=== PATIENT | female | born 1940 | race Caucasian/White ===

== ENCOUNTER 2020-05-02 22:40 | Inpatient (IN) | payer MEDICARE, OTHER ==
[~2020-05-02] VITALS: Ht 170.2 cm; Wt 113.4 kg
[2020-05-03] VITALS (19 sets, daily range): BP systolic 104–149; BP diastolic 68–88
--- NOTE | 2020-05-03 00:58 | Emergency Department Note ---
History of Present Illnes History of Present Illness Chief Complaint: Respiratory History of Present Illness This is a 80 year old female PRESENTS TO THE ER C/O GENERALIZED WEAKNESS, SOB AND "FLUTTERING IN CHEST" FOR THE PAST WEEK; PT'S DAUGHTER STATES SHE STARTED A NEW MEDICATION A FEW WEEKS AGO; PT STATES SOB WORSENED TODAY; PT BRADYCARDIC, HR 35 IN TRIAGE; PT STATES COUGH FOR SEVERAL MONTHS THAT HAS NOT CHANGED AND DENIES CHEST PAIN, FEVER . Historian: Patient Arrival Mode: Car Onset (how long ago): week(s) (1) Location: GENERALIZED Quality: WEAKNESS, SO Radiation: Reports non-radiation Severity: moderate Onset quality: gradual Duration (how long): week(s) (1) Timing of current episode: constant Progression: worsening Context: Denies recent illness, Denies recent surgery Relieving factors: none Exacerbating factors: movement (EXERTION) Associated symptoms: Reports denies other symptoms Past Medical/Family History Physician Review I have reviewed the patient's past medical and family history. Any updates have been documented here. Past Medical History Recent Fever: No Clinical Suspicion of Infectio: No New/Unexplained Change in Ment: No Past Medical History: Hypertension, Hyperlipedemia Other Medical History: "SOME DEMENTIA" Past Surgical History: None Social History Smoking Cessation: Never Smoker Alcohol Use: None Any Illegal Drug Use: No Family History Family history of heart diseas: No Other family history HTN Review of Systems Review of Systems Constitutional: Reports no symptoms EENTM: Reports no symptoms Cardiovascular: Reports no symptoms Respiratory: Reports as per HPI Gastrointestinal: Reports no symptoms Genitourinary: Reports no symptoms Musculoskeletal: Reports no symptoms Integumentary: Reports no symptoms Neurological: Reports no symptoms Psychological: Reports no symptoms Endocrine: Reports no symptoms Hematological/Lymphatic: Reports no symptoms Physical Exam Related Data Allergies: Coded Allergies: Sulfa (Sulfonamide Antibiotics) (Verified Allergy, Intermediate, 05/03/20) iodine (Verified Allergy, Intermediate, 05/03/20) Triage Vital Signs Vital Signs Date Time Temp Pulse Resp B/P (MAP) Pulse Ox O2 Delivery O2 Flow Rate FiO2 05/02/20 23:58 35 20 145/90 97 Room Air Vital signs reviewed: Yes Physical Exam CONSTITUTIONAL Constitutional: Present well-developed, Present well-nourished HENT HENT: Present normocephalic, Present atraumatic, Present oropharynx clear/moist, Present nose normal HENT L/R: Present left ext ear normal, Present right ext ear normal EYES Eyes: Reports PERRL, Reports conjunctivae normal NECK Neck: Present ROM normal PULMONARY Pulmonary: Present effort normal, Present breath sounds normal CARDIOVASCULAR Cardiovascular: Present regular rhythm, Present heart sounds normal, Present c apillary refill normal, Present bradycardia (RATE 35) GASTROINTESTINAL Abdominal: Present soft, Present nontender, Present bowel sounds normal GENITOURINARY Genitourinary: Present exam deferred SKIN Skin: Present warm, Present dry MUSCULOSKELETAL Musculoskeletal: Present ROM normal NEUROLOGICAL Neurological: Present alert, Present oriented x 3, Present no gross motor or sensory deficits PSYCHOLOGICAL Psychological: Present mood/affect normal, Present judgement normal Procedures 12 Lead ECG Interpretation ECG Interpretation : ECG: ECG 1 Sanitary Landfill Supervisor: Interpreted by ED physician Date: May 03, 2020 Time: 01:29 Rhythm: sinus bradycardia Rate: bradycardia (34) BPM: 34 QRS axis: normal Conduction: bifascicular block Other findings: LVH Clinical Impression: abnormal ECG Additional Comments PT HAS ATRIAL RATE OF 70 BASED ON P WAVES AND VENTRICULAR RATE OF 34, EVERY OTHER BEAT IS DROPPING Assessment & Plan Medical Decision Making MDM PT WITH GENERALIZED WEAKNES AND EXERTIONAL SOB FOR PAST 1 WEEK, FOUND TO HAVE HEART RATE OF 35 ON ARRIVAL TO TRIAGE CBC, CMP, EKG, PT/PTT, CXR, CARDIAC ENZYMES ORDERED TO EVAL FOR MYOCARDIAL INFARCTION, AV BLOCK, HYPERKALEMIA, RENAL FAILURE, PNEUMONIA, ELECTROLYTE ABNORMALITY I SPOKE WITH DR MONIQUE AND DR VILLARREAL, ADMIT PT TO ICU, WILL GET A PACEMAKER THIS MORNING Reassessment Reassessment time: 02:56 Reassessment PT UNCHANGED, STILL WITH HEART RATE OF 35 Assessment & Plan Final Impression: (1) Symptomatic bradycardia Depart Disposition: ADMITTED Last Vital Signs Date Time Temp Pulse Resp B/P (MAP) Pulse Ox O2 Delivery O2 Flow Rate FiO2 7/8/20 23:58 35 20 145/90 97 Room Air BEA LANDRY MD May 03, 2020 00:58
[2020-05-03 01:16] LABS: BASOPHILS % 0.3 % (0.0-1.0); EOSINOPHILS % 0.1 % (0.0-6.0); HEMATOCRIT 38.8 % (34.2-44.1); HEMOGLOBIN 12.7 g/dL (12.0-16.0); LYMPHOCYTES # (AUTO) 1.2 (1.0-3.2); LYMPHOCYTES % 10.9 % (18.0-39.1); MEAN CORPUSCULAR HGB CONC 32.7 g/dL (31-35); MEAN CORPUSCULAR VOLUME 91.5 fL (81-99); MONOCYTES # (AUTO) 0.4 (0.2-0.8); MONOCYTES % 3.8 % (4.4-11.3); NEUTROPHILS # (AUTO) 9.6 (2.1-6.9); NEUTROPHILS % 84.5 % (38.7-80.0); PLATELET COUNT 257 x10e3/uL (140-360); RED BLOOD COUNT 4.24 x10e6/uL (3.6-5.1)
[2020-05-03 01:27] LABS: INR 0.94; PROTHROMBIN TIME 13.1 seconds (11.9-14.5)
[2020-05-03 01:28] LABS: PARTIAL THROMBOPLASTIN TIME 29.4 seconds (23.8-35.5)
[2020-05-03 01:36] LABS: ALBUMIN 3.8 g/dL (3.5-5.0); ALBUMIN/GLOBULIN RATIO 1.1 (0.8-2.0); ANION GAP 16.5 mmol/L (8-16); CALCIUM 9.7 mg/dL (8.4-10.2); CREATININE, SERUM 1.23 mg/dL (0.57-1.11); POTASSIUM 4.5 mmol/L (3.5-5.1)
[2020-05-03 01:46] LABS: CREATINE KINASE MB 2.5 ng/mL (0-5.0)
--- NOTE | 2020-05-03 01:53 | Diagnostic Imaging Report ---
EXAMINATION: CHEST SINGLE (PORTABLE) INDICATION: Short of breath, weak COMPARISON: None FINDINGS: TUBES and LINES: None. LUNGS: Normal lung volumes. Subtle bilateral infrahilar haziness No consolidations. PLEURA: No pleural effusion or pneumothorax. HEART AND MEDIASTINUM: Cardiac size is moderately enlarged. BONES AND SOFT TISSUES: No acute osseous lesion. Soft tissues are unremarkable. UPPER ABDOMEN: No free air under the diaphragm. IMPRESSION: Moderate cardiomegaly. Subtle bilateral infrahilar haziness can be due to atelectasis or pneumonia although lung field evaluation is limited due to AP portable technique and patient body habitus. Signed by: Robert Larson DO on 05/03/2020 1:50 AM
--- NOTE | 2020-05-03 02:31 | NUR ---
INITIATED TRANSFER TO [facility], NO BEDS AVAILABLE INITIATED TRANSFER TO [facility], ONLY ACCEPTING PTS FROM WITHIN SYSTEM INITIATED TRANSFER TO [facility]
--- NOTE | 2020-05-03 02:50 | NUR ---
LAURYN SANDOVAL DENIED TRANSFER
[2020-05-03] MEDS ORDERED: ATROPINE SULFATE 1 MG/ML VIAL IV ONE (03:00)
--- NOTE | 2020-05-03 03:30 | NUR ---
PT MEDICARTED PER MD ORDERS, NO CHANGE NOTED TO UNIVERSITY PROFESSOR, RATE
[2020-05-03] MEDS ORDERED: ALBUTEROL SULF 0.083% NEB SOLN 3 ML NEB ONE ×2 (04:51→04:52)
[2020-05-03] MEDS ORDERED: ALBUTEROL SULF 0.083% NEB SOLN 3 ML NEB NEB STA (05:11)
[2020-05-03] MEDS ORDERED: HEPARIN SOD (PORCINE) 1000 UNIT/ML 30ML ONE (05:39)
[2020-05-03] MEDS ORDERED: METHYLPREDNISOLONE SOD SUCC 125 MG/2ML VIAL ONE (05:39)
[2020-05-03] MEDS ORDERED: LIDOCAINE HCL 2% LOCAL 20 ML VIAL ONE (05:40)
[2020-05-03] MEDS ORDERED: FAMOTIDINE 20 MG/2 ML VIAL IV ONE (05:40)
[2020-05-03] MEDS ORDERED: FENTANYL CITRATE/PF 100MCG/2 ML INJ ONE ×2 (05:40→14:50)
[2020-05-03] MEDS ORDERED: DIPHENHYDRAMINE HCL INJ 50 MG/ML VIAL ONE (05:40)
[2020-05-03] MEDS ORDERED: MIDAZOLAM HCL 2 MG/2 ML VIAL ONE ×3 (05:40→16:16)
[2020-05-03] MEDS ORDERED: IOPAMIDOL 370 MG/ML 200 ML INFUS..BTL INJ ONE ×2 (05:41→14:51)
[2020-05-03] MEDS ORDERED: NITROGLYCERIN/D5W 200 MCG/ML 0 ML ONE (05:41)
[2020-05-03] MEDS ORDERED: SODIUM CHLORIDE 0.9% 1000ML 1,000 ML ONE ×2 (05:41→14:52)
--- NOTE | 2020-05-03 08:14 | Operative Report ---
DATE OF PROCEDURE: 05/03/2020 SURGEON: Rene Webber MD CARDIAC MINE ANALYST PROCEDURE NOTE INDICATION: 1. Coronary artery disease, acute systolic heart failure. 2. Complete heart block. PROCEDURES PERFORMED: 1. Ultrasound-guided access in the right internal jugular vein with sheath placement. 2. Conscious sedation administration, hemodynamic, neurological monitoring and recovery by metallurgical lab technician RN, supervision, by , 65 minutes. 3. Left heart catheterization, selective coronary angiography. 4. Placement of temporary transvenous pacemaker. 5. Deployment of right groin Mynx closure device. COMPLICATIONS: None. RECOMMENDATIONS: AICD (NETWORK SECURITY ENGINEER-D) placement. BLOOD LOSS: Minimal. DESCRIPTION OF PROCEDURE: Access obtained in the right internal jugular vein using ultrasound guidance. A 6-Icelandic sheath was placed. A temporary pacemaker wire was advanced to the right ventricular apex and pacing initiated without complications. The access was then obtained in the right femoral artery. A 6-Icelandic sheath was placed. Coronary angiography demonstrated mild coronary artery disease, 30% to 50% luminal stenosis diffusely. Right coronary artery was nondominant. Mid left anterior descending artery 50% stenosis. LV end-diastolic pressure was markedly elevated at 40 mmHg. No gradient across the aortic valve on pullback. Right groin sheath was removed. Mynx closure device applied. The patient was observed in the metallurgical lab technician for subsequent AICD placement. Rene Webber MD KSB/MODL /[id number]
--- NOTE | 2020-05-03 08:33 | NUR ---
0833 am/pm RECEIVING NOTE RN LAB RECOVERY DEPT............................................................... Bedside report received from Racquel MCFARLAND. Identifierx2. Alert oriented and appropriate, PERRLA, respirations even and unlabored to room air. Pulses x4 extremities equal and strong. Pedal pulses PT/DP X4 and marked. Cap fill brisk < 3 sec. Rt SFA Mynx and Rt Ij temp pacer. NO gross issues pain,pallor,pressure or dysrhythmia. Skin warm and dry integrity appears D/I. IV 20g to left ac clamp, presents healthy w/o s/s of infiltration or complaint. Abdomen soft and supple. pt offered toileting, denies need to urinate or defecate. No personal affects with patient. Family Fifi sister at bedside. . Pt and family verbalizes understanding of POC. Currently w/o complaint of pain or need.Dr Rayo awaiting table time for permanent pacer placement for symptomatic bradycardia. Pt has not voided has history of sleep apnea and pulmonary issues. NRB in place.Pt has non resulted COVID testing.isabel/valeria
--- NOTE | 2020-05-03 08:34 | Consultation ---
DATE OF CONSULTATION: 05/03/2020 Cardiology Consultation REASON FOR CONSULTATION: Coronary artery disease, complete heart block with acute systolic heart failure. HISTORY OF PRESENT ILLNESS: Ms. Nam is a 80-year-old female, who was in her usual state of health for two days, start feeling weak and tired with shortness of breath. She came into the emergency room at [facility], found to have complete heart block, heart rate 38, blood pressure 90. She also has a troponin of 0.5 without any evidence of chest pain or EKG changes suggestive of myocardial infarction. The patient denies past cardiac problem. Does have a history of hypertension, nondiabetic. PAST MEDICAL HISTORY: Listed above. SOCIAL HISTORY: The patient does not smoke or drink. No family is present. FAMILY HISTORY: Noncontributory. MEDICATIONS: At home were reviewed. REVIEW OF SYSTEMS: Negative except as dictated in the history of present illness. PHYSICAL EXAMINATION: VITAL SIGNS: Afebrile. Heart rate is 38, blood pressure is 90/62, O2 sats 100%. CARDIOVASCULAR: Regular rhythm. S3 gallop, bradycardia and systolic murmur. LUNGS: Decreased breath sounds bilaterally. ABDOMEN: Distended. EXTREMITIES: 1+ edema bilaterally. LABORATORY DATA: 1. Electrocardiogram shows third-degree AV block with AV dissociation. 2. Labs are reviewed. 3. Echocardiogram was reviewed. Ejection fraction is 30% with marked dyskinesis of the LV, anteroapical cunha. ASSESSMENT: 1. Complete heart block, symptomatic. 2. Acute systolic heart failure. 3. No evidence of myocardial infarction, troponin elevation secondary to acute heart failure. RECOMMENDATIONS: Emergent temporary transvenous pacemaker will be placed along with coronary angiography for acute heart failure. The patient is a candidate for biventricular AICD placement. This will be discussed with the patient. Electrophysiology has been consulted following the initial emergency procedures, which will be performed. The patient understands risks, benefits, and alternatives and agrees to proceed. I thank Dr. Garcia for this consultation. MD MARLYS Maria/ALLISON /[id number]
[2020-05-03 09:31] LABS: CREATINE KINASE MB 7.5 ng/mL (0-5.0)
--- NOTE | 2020-05-03 09:44 | NUR ---
Dr. Webber notified of elevated troponin. No new orders received at this time.
--- NOTE | 2020-05-03 10:21 | Diagnostic Imaging Report ---
X-ray chest AP portable Comparison: 05/03/2020 History: Clearance for Bi-V Findings: Central airways unremarkable. Cardiomegaly. No definite pleural effusion. No pneumothorax. Interstitial pulmonary edema. Right jugular route single-chamber pacemaker with the tip overlying the right ventricle. No acute changes in the visualized skeleton and extrathoracic soft tissue including metallic density in the right axilla. Impression: Interstitial pulmonary edema. Signed by: Neto Gonzalez MD on 05/03/2020 10:17 AM
[2020-05-03] MEDS ORDERED: LIDOCAINE 1% W/EPINEPHRINE 20 ML VIAL ONE (14:50)
[2020-05-03] MEDS ORDERED: BACITRACIN 50,000 UNIT VIAL ONE (14:51)
[2020-05-03] MEDS ORDERED: SODIUM CHLORIDE 0.9% 500ML 500 ML ONE (14:52)
[2020-05-03] MEDS ORDERED: VANCOMYCIN 1GM/NS 250 ML 500 ML ONE (14:52)
--- NOTE | 2020-05-03 15:00 | NUR ---
1500p consent completed by Juanito Yoo Iv checked saline lock remains patient. Family sis Therese at bedside. 1530 Pt brought to mechanical shop laborer suite. Stable vs and tempory pacer in place at 60HR, No gross issues pain,pallor or bleeding to rt If pacer site or rt groin Mynx site.DR Rayo arrived and Report to Kj Yoo and Curly Yoo.
--- NOTE | 2020-05-03 16:54 | NUR ---
[id number] Room assignment by service delivery supervisor 101 bed is ready, telemetry box delivered to CCL control room as well as shoulder sleeve support. ds/rn
[2020-05-03] MEDS ORDERED: GENTAMICIN SULFATE 40 MG/ML 2 ML VIAL ONE (17:07)
--- NOTE | 2020-05-03 18:02 | NUR ---
Received report from medical laboratory technicians nurse, Leo. Patient is s/p permanent pacemaker placement coming to room 101
--- NOTE | 2020-05-03 18:10 | NUR ---
Patient arrived to the floor from laborer demolition. Dressing to right groin and left IJ is intact. No signs of bleeding. Patient is awake and oriented x3. Oriented to the room and how to use the call light. Bed alarm on.
--- NOTE | 2020-05-03 19:10 | NUR ---
RECEIVED REPORT FROM PREVIOUS NURSE. CALL LIGHT WITHIN REACH. PATIENT IN BED. ROUNDING PERFORMED.
[2020-05-03 19:28] LABS: CREATINE KINASE MB 9.7 ng/mL (0-5.0)
--- NOTE | 2020-05-03 20:12 | Operative Report ---
DATE OF PROCEDURE: 05/03/2020 SURGEON: Doron Maguire MD PREPROCEDURE DIAGNOSES: 1. Complete heart block. 2. Temporary pacemaker in place. 3. Cardiomyopathy, ejection fraction 30%. 4. Congestive heart failure class 3, pacemaker dependent. POSTPROCEDURE DIAGNOSES: 1. Complete heart block. 2. Temporary pacemaker in place. 3. Cardiomyopathy, ejection fraction 30%. 4. Congestive heart failure class 3, pacemaker dependent. ESTIMATED BLOOD LOSS: 10 mL. COMPLICATIONS: None. PROCEDURES PERFORMED: 1. Biventricular cardiac defibrillator placement. 2. Removal of temporary pacemaker wire. 3. Moderate sedation. Moderate conscious sedation was provided under my direct supervision by a sedation trained nurse. Sedation approximate time, 45 minutes, versed and fentanyl. There were no complications. See sedation form for details. DESCRIPTION OF PROCEDURE: After informed consent was obtained, the patient was brought to the electrophysiology laboratory in a fasting and nonsedated state. Area over her chest was prepped and draped in the usual sterile fashion. Moderate sedation and prophylactic antibiotics were given. A 1% lidocaine was used as local anesthetic and a 3 cm skin incision was made in the left subclavicular area. Electrocautery sharp and blunt dissection were used to bridge the muscular fascia and a pocket was created for event implantation of the device. Vascular access was obtained x3 in the left common femoral vein using modified Seldinger technique under fluoroscopic guidance. Three sheaths were placed, ventricular lead into the RV apex. R-wave 5, pacing threshold 0.7 at 0.4, impedance 500, coronary sinus was cannulated using AL2 catheter and Vance wire. Coronary sinus angiogram demonstrated proximal posterolateral branch, successfully cannulated. Pacing thresholds 2 at 0.4, impedance 500, and then atrial lead to the right atrial appendage, P-wave 6, pacing 1.9 at 0.4, impedance 600. Sheaths were removed from the body. Leads were secured to fascia using Ethibond. Pocket was irrigated with antibiotic solution using a pulse saw straightener. Hemostasis was meticulous. Leads connected to the device and entire new ICD system placed in the pocket. We used vancomycin powder in the pocket. We used antibiotic envelope to the generator. Incision was closed using absorbable sutures and Dermabond. The patient tolerated the procedure well. Procedure was incomplete. We then proceeded with removing the temporary wire from the right IJ. The area was prepped and draped in the usual sterile fashion. The lead disconnected from the external pacemaker and a stylet was advanced to the deep and the screw was retracted and the lead removed without any issues. The patient tolerated the procedure well. Procedure was incomplete. SUMMARY OF HARDWARE IMPLANTED: 1. New defibrillator is a [employer], serial #[id number]. 2. Atrial lead, [employer] [id number]. 3. Right ventricular lead is [employer] [id number]. 4. Left ventricular lead is [employer] [id number]. IMPRESSION: 1. Successful biventricular cardiac defibrillator placement via left axillary vein. 2. Successful removal of temporary pacing wire from the right IJ. PLAN: 1. Routine postop monitoring on telemetry bed. 2. Chest x-ray. 3. Follow up in two weeks. MD YUKI Desai/PRERNAL /[id number]
[2020-05-03] MEDS ORDERED: HYDRALAZINE HCL 20 MG/ML VIAL IV PRN (21:15)
[2020-05-03] MEDS ORDERED: ONDANSETRON HCL INJ 2MG/ML 2ML 2 MG/ML VIAL IV PRN (21:15)
[2020-05-03] MEDS ORDERED: ACETAMINOPHEN 325 MG TAB PO PRN (21:15)
--- NOTE | 2020-05-03 21:47 | Consultation ---
DATE OF CONSULTATION: 05/03/2020 REASON FOR CONSULT: Complete heart block, congestive heart failure, origin consult. HISTORY OF PRESENT ILLNESS: This is a 80-year-old woman with history of hypertension. She states she has history of bradycardia. At some point, she was told she needed a pacemaker a while ago. Also, history of congestive heart failure that presented after an episode of syncope. She underwent left heart catheterization due to complete heart block and a temporary pacemaker placement and she has become dependent with no underlying ventricular rhythm. The pacemaker is still working, although the patient is very uncomfortable with the pacemaker in the IJ position. We were consulted for urgent consideration of pacing. The ejection fraction is 30%. She has history of congestive heart failure class 3 symptoms. REVIEW OF SYSTEMS: CONSTITUTIONAL: As per HPI. CARDIOVASCULAR: As per HPI. RESPIRATORY: As per HPI. GASTROINTESTINAL: Negative. GENITOURINARY: Negative. MUSCULOSKELETAL: Negative. EYES: Negative. ENT: Negative. ALLERGY/IMMUNOLOGY: Negative. PSYCHIATRIC: Negative. PAST MEDICAL HISTORY: Hypertension and bradycardia. PAST SURGICAL HISTORY: Denies. FAMILY HISTORY: No premature coronary artery disease. SOCIAL HISTORY: Denies alcohol or smoking. PHYSICAL EXAMINATION: VITAL SIGNS: Blood pressure 138/60, pulse 60, respirations 20, and O2 saturations 98%. GENERAL: No acute distress. HEENT: Moist mucous membranes. CARDIOVASCULAR: Irregular. RESPIRATORY: Clear. ABDOMEN: Soft and nontender. MUSCULOSKELETAL: 2+ distal pulses. NEUROLOGICAL: No focal deficit. SKIN: No lesions. PSYCHIATRIC: Normal thought process. Temporary pacemaker wire in the right IJ position. LABORATORY DATA: EKG, sinus rhythm, ventricular paced rhythm. IMPRESSION: 1. Complete heart block, no underlying rhythm. 2. Temporary pacemaker in place. 3. History of congestive heart failure with cardiomyopathy, ejection fraction 30%. 4. Congestive heart failure class 3. RECOMMENDATIONS: I had a long discussion with the patient. She has these longstanding cardiomyopathy and ejection fraction is 30%, now with acute development of complete heart block. She is going to be pacemaker-dependent. I am afraid of further farther deterioration from right ventricular pacing, so she will be a candidate for MUNITIONS HANDLER SUPERVISOR and the fact that she has cardiomyopathy will be in defibrillator as well. These were discussed in detail. The patient voices understanding and wishes to proceed. Plan for biventricular cardiac defibrillator placement and removal of temporary pacer urgently. Thank you for letting us to participate in Ms. Cyril's healthcare. MD YUKI Desai/ALLISON /[id number]
[2020-05-03] MEDS ORDERED: MORPHINE SULFATE 2 MG/ML SYR 1ML IV PRN (22:00)
[2020-05-03] MEDS ORDERED: VANCOMYCIN 1GM/NS 250 ML 250 ML IV SCH (22:00)
[2020-05-03] MEDS: CEFAZOLIN SOD 1 GM/NS 50ML 50 ML IV SCH (22:45)
[2020-05-03] MEDS: SODIUM CHLORIDE 0.9% 1000ML 1,000 ML IV ONE (22:54)
[2020-05-03] MEDS ORDERED: SODIUM CHLORIDE 0.9% 250ML 250 ML ONE (23:02)
[2020-05-03] MEDS: VANCOMYCIN 1GM/NS 250 ML 250 ML IV SCH (23:30)
--- NOTE | 2020-05-03 23:55 | Diagnostic Imaging Report ---
EXAMINATION: CHEST XRAY POST PROCEDURE INDICATION: Pacemaker placement, verify position COMPARISON: Chest x-ray 05/03/2020 9:54 AM FINDINGS: TUBES and LINES: New left chest wall cardiac device with leads in the right atrium, right ventricle, and coronary sinus. Interval removal of right chest cardiac device. LUNGS/PLEURA: Normal lung volumes. Bilateral lower lung haziness Prominent central pulmonary vasculature. No pneumothorax. HEART AND MEDIASTINUM: Cardiac size is mildly enlarged. BONES AND SOFT TISSUES: No acute osseous lesion. Soft tissues are unremarkable. UPPER ABDOMEN: No free air under the diaphragm. IMPRESSION: New left chest wall cardiac device with leads in the right atrium, right ventricle, and coronary sinus. Interval removal of right chest cardiac device. Mild cardiomegaly and pulmonary vascular congestion. Bilateral lower lung haziness is likely due to extrathoracic soft tissue attenuation although atelectasis and/or pleural effusions are possibilities. Signed by: Robert Larson DO on 05/03/2020 11:51 PM
[2020-05-04] VITALS (8 sets, daily range): BP systolic 122–146; BP diastolic 66–86
[2020-05-04] MEDS ORDERED: PNEUMOCOCCAL VACCINE POLYVALENT 23 MCG/0.5 ML VIAL IM SCH (04:53)
[2020-05-04 05:22] LABS: BASOPHILS % 0.1 % (0.0-1.0); HEMATOCRIT 30.8 % (34.2-44.1); HEMOGLOBIN 10.1 g/dL (12.0-16.0); LYMPHOCYTES # (AUTO) 1.4 (1.0-3.2); LYMPHOCYTES % 8.9 % (18.0-39.1); MEAN CORPUSCULAR HEMOGLOBIN 30.3 pg (28-32); MEAN CORPUSCULAR HGB CONC 32.8 g/dL (31-35); MEAN CORPUSCULAR VOLUME 92.5 fL (81-99); MONOCYTES # (AUTO) 1.2 (0.2-0.8); MONOCYTES % 7.6 % (4.4-11.3); NEUTROPHILS # (AUTO) 13.1 (2.1-6.9); NEUTROPHILS % 82.7 % (38.7-80.0); PLATELET COUNT 190 x10e3/uL (140-360); RED BLOOD COUNT 3.33 x10e6/uL (3.6-5.1); RED CELL DISTRIBUTION WIDTH 13.3 % (11.7-14.4)
[2020-05-04 05:30] LABS: ALBUMIN 3.2 g/dL (3.5-5.0); ALBUMIN/GLOBULIN RATIO 1.1 (0.8-2.0); ANION GAP 13.8 mmol/L (8-16); CALCIUM 8.6 mg/dL (8.4-10.2); CREATININE, SERUM 1.24 mg/dL (0.57-1.11); POTASSIUM 4.8 mmol/L (3.5-5.1)
[2020-05-04 05:54] LABS: CHOL/HDL RATIO 3.5 (3.0-3.6)
--- NOTE | 2020-05-04 05:57 | NUR ---
CALLED DR. MONIQUE AND TALKED TO DR. ALBERT ABOUT PATIENT'S BUN AND CREATININE. LAB CALLED FOR A CHANGE IN BUN FROM [address] ALBERT SAID OKAY AND GAVE NO ORDERS
[2020-05-04] MEDS: CEFAZOLIN SOD 1 GM/NS 50ML 50 ML IV SCH ×3 (06:07→21:45)
[2020-05-04 06:22] LABS: CREATINE KINASE MB 7.3 ng/mL (0-5.0)
--- NOTE | 2020-05-04 06:30 | NUR ---
CALLED AND TALKED TO DR. VILLARREAL ABOUT PATIENT'S TROPONIN BEING 2.733. DR. VILLARREAL SAID IT HAS BEEN UP AND THE PATIENT SHOULD BE GOING HOME TODAY AND HE WILL TALK TO DR. MONIQUE.
--- NOTE | 2020-05-04 07:10 | NUR ---
GAVE BEDSIDE SHIFT REPORT TO ONCOMING NURSE. CALL LIGHT WITHIN REACH. PATIENT IN BED. HOURLY ROUNDING PERFORMED
--- NOTE | 2020-05-04 12:40 | History and Physical ---
PRIMARY CARE PHYSICIAN: Dr. Marleen Perez. CHIEF COMPLAINT: Shortness of breath and cough. HISTORY OF PRESENT ILLNESS: This is a 80-year-old female presented to the ER with complaints of shortness of breath and weakness. She denies any chest pain, palpitations, fever, chills, nausea, or vomiting. She reports symptoms worsened shortly so so her sister brought her to the ER for further evaluation. She denies any dysuria, diaphoresis, chest pain, ill contact. PAST MEDICAL HISTORY: 1. Hypertension. 2. High cholesterol. 3. CHF. 4. Dementia. PAST SURGICAL HISTORY: She reports cholecystectomy and tonsillectomy. FAMILY MEDICAL HISTORY: She reports both mother and father had heart attack. SOCIAL HISTORY: She denies any tobacco, alcohol, or illicit drug use. ALLERGIES: SHE IS ALLERGIC TO SULFA DRUGS AND IODINE. REVIEW OF SYSTEMS: A 12-system reviewed and negative except as noted in HPI. PHYSICAL EXAMINATION: VITAL SIGNS: Temperature 98.3, pulse is 80, respirations 16, blood pressure 125/78, pulse ox is 99% on 2 L of nasal cannula. GENERAL: No acute distress. HEENT: Normocephalic, atraumatic. NECK: Supple. LUNGS: Decreased breath sounds. CARDIOVASCULAR: Regular rate and rhythm. GI: Soft and nontender. NEURO: Alert, awake oriented x2-3. Mild dementia. MUSCULOSKELETAL: Moves all extremities. SKIN: Dry. LABORATORY DATA: WBC 15.84, hemoglobin 7.1, hematocrit 30.8, platelets 190. Sodium 142, potassium 4.8, CO2 19, BUN is 32, creatinine 1.24, hemoglobin A1c 5.1, AST 27, ALT 17, troponin 2.423, then 2.733. Triglycerides 133, cholesterol 119, LDL 58, HDL 34. Coronavirus PCR is pending. Chest x-ray shows a new left chest wall cardiac device with leads in the right atrium, right ventricle and coronary sinus interval removal of right chest cardiac device, bilateral lower lung haziness is likely due to extrathoracic soft tissue attenuation, although atelectasis and/or pleural effusions are possibility. IMPRESSION AND PLAN: 1. Complete heart block with symptoms. She underwent emergent temporary transvenous pacemaker. Chest x-ray noted. Continue with IV antibiotics and tele monitor. 2. Acute kidney injury. Likely chronic. We will continue to monitor. 3. Acute systolic congestive heart failure. Cardiology on the case. We will defer to Cardiology. 4. Leukocytosis. Afebrile. Continue on IV antibiotics. We will repeat labs in a.m. 5. Hypertension. We will hold losartan due to acute kidney injury. Blood pressure all stable. We will treat as needed only. 6. High cholesterol. We will resume home Lipitor. 7. Dementia. We will resume donepezil. 8. Elevated troponins. Defer to Cardiology. PLAN: To continue treatment. We will repeat labs in a.m. Echo with EF of 30%. Further recommendations per Cardiology. Dictated by Maureen Falk, ANAHY Alexis Garcia MD MY/MODL /[id number]
--- NOTE | 2020-05-04 18:51 | Progress Note ---
DATE: Cardiology Progress Note SUBJECTIVE: The patient is feeling better. Denies any typical chest pain or shortness of breath. She reports mild discomfort at the ICD implant site. OBJECTIVE: VITAL SIGNS: Temperature is 98.0, heart rate is 84, respirations are at 17, blood pressure is 127/79, and ox saturation 98% on 2 L nasal cannula. GENERAL: Well appearing, no apparent distress. CARDIOVASCULAR: Regular rate and rhythm. LUNGS: Clear to auscultation. ABDOMEN: Soft, nontender, nondistended. EXTREMITIES: No clubbing, cyanosis, or edema. LABORATORY DATA: Reviewed. Hemoglobin is 10, white blood cell count is 15, creatinine is 1.24. Troponin is elevated at 2.7. IMPRESSION: 1. Complete heart block, status post biventricular implantable cardioverter defibrillator implantation. 2. Acute systolic congestive heart failure, status post implantable cardioverter-defibrillator implantation. 3. Type 2 myocardial infarction. 4. Hypertension. 5. Hyperlipidemia. 6. Obesity. RECOMMENDATIONS: The patient has a stable cardiovascular status. We will start optimal medical therapy for heart failure including NELSON inhibitor and beta nida. She appears well compensated. ICD interrogation to be performed. If the patient is stable, she may be discharged tomorrow from a cardiovascular standpoint. DO MICHEAL Katz/MODL /[id number]
--- NOTE | 2020-05-04 19:00 | NUR ---
RECEIVED REPORT FROM PREVIOUS NURSE. CALL LIGHT WITHIN REACH. PATIENT IN BED. ROUNDING PERFORMED.
[2020-05-04] MEDS ORDERED: FLUTICASONE PRO16 GM (20:23)
[2020-05-04] MEDS ORDERED: GABAPENTIN100 MG (20:23)
[2020-05-04] MEDS ORDERED: AMLODIPINE BESY10 MG (20:23)
[2020-05-04] MEDS ORDERED: COZAAR100 MG (20:23)
[2020-05-04] MEDS ORDERED: DETROL2 MG (20:23)
[2020-05-04] MEDS ORDERED: CHOLESTYRAMINE R5 GM (20:23)
[2020-05-04] MEDS ORDERED: SIMVASTATIN10 MG (20:23)
[2020-05-04] MEDS ORDERED: DONEPEZIL HCL10 MG (20:23)
[2020-05-04] MEDS: DONEPEZIL HCL 5 MG TAB PO SCH (21:45)
[2020-05-04] MEDS: ATORVASTATIN 10 MG TAB PO SCH (21:45)
[2020-05-04] MEDS: VANCOMYCIN 1GM/NS 250 ML 250 ML IV SCH (22:40)
[2020-05-05] VITALS (9 sets, daily range): BP systolic 117–134; BP diastolic 65–85
[2020-05-05 05:27] LABS: BASOPHILS % 0.3 % (0.0-1.0); EOSINOPHILS % 0.2 % (0.0-6.0); HEMATOCRIT 31.2 % (34.2-44.1); HEMOGLOBIN 9.9 g/dL (12.0-16.0); LYMPHOCYTES # (AUTO) 2.5 (1.0-3.2); MEAN CORPUSCULAR HEMOGLOBIN 29.8 pg (28-32); MEAN CORPUSCULAR HGB CONC 31.7 g/dL (31-35); MONOCYTES # (AUTO) 0.9 (0.2-0.8); MONOCYTES % 7.5 % (4.4-11.3); NEUTROPHILS # (AUTO) 8.9 (2.1-6.9); NEUTROPHILS % 71.4 % (38.7-80.0); PLATELET COUNT 161 x10e3/uL (140-360); RED BLOOD COUNT 3.32 x10e6/uL (3.6-5.1); RED CELL DISTRIBUTION WIDTH 13.1 % (11.7-14.4)
[2020-05-05] MEDS: CEFAZOLIN SOD 1 GM/NS 50ML 50 ML IV SCH ×3 (05:48→22:00)
[2020-05-05 05:54] LABS: ANION GAP 14.3 mmol/L (8-16); BLOOD UREA NITROGEN 25 mg/dL (7-26); BUN/CREATININE RATIO 28 (6-25); CALCIUM 8.6 mg/dL (8.4-10.2); CARBON DIOXIDE 18 mmol/L (22-29); CHLORIDE 113 mmol/L (98-107); CREATININE, SERUM 0.88 mg/dL (0.57-1.11); EST GLOMERULAR FILTRATION RATE > 60 ML/MIN (60-); GLUCOSE 108 mg/dL (74-118); POTASSIUM 4.3 mmol/L (3.5-5.1); SODIUM 141 mmol/L (136-145)
--- NOTE | 2020-05-05 07:04 | NUR ---
GAVE BEDSIDE REPORT TO ONCOMING NURSE. CALL LIGHT WITHIN REACH. PATIENT IN BED. HOURLY ROUNDING PERFORMED.
[2020-05-05] MEDS: FUROSEMIDE 20 MG TAB PO SCH (08:55)
[2020-05-05] MEDS: METOPROLOL SUCCINATE 25 MG TAB XL PO SCH (08:56)
[2020-05-05] MEDS ORDERED: LISINOPRIL 10 MG TAB PO SCH (09:00)
--- NOTE | 2020-05-05 12:09 | Diagnostic Imaging Report ---
EXAMINATION: CHEST SINGLE (PORTABLE) INDICATION: cough COMPARISON: Chest x-ray 05/03/2020 at 11:16 PM. FINDINGS: TUBES and LINES: Left chest wall AICD with leads in the right atrium, right ventricle, and coronary sinus. LUNGS/PLEURA: Normal lung volumes. There is persistent bibasilar faint hazy opacities. Prominent central pulmonary vasculature. No pneumothorax. HEART AND MEDIASTINUM: Cardiac size is mildly enlarged, unchanged. BONES AND SOFT TISSUES: No acute osseous lesion. Soft tissues are unremarkable. UPPER ABDOMEN: No free air under the diaphragm. IMPRESSION: Unchanged mild cardiomegaly and pulmonary vascular congestion. Persistent faint bibasilar hazy opacities which could be due to atelectasis. Pneumonia could be considered in appropriate clinical setting. Signed by: Иван Gibbs MD on 05/05/2020 12:05 PM
--- NOTE | 2020-05-05 12:29 | Progress Note ---
DATE: Cardiology Progress Note SUBJECTIVE: The patient reports a worsening cough and also some pain surrounding her surgical incision of the ICD implant site. Denies any shortness of breath. OBJECTIVE: VITAL SIGNS: Temperature 98.8, pulse 92, respiratory rate 18, blood pressure 125/65, oxygen saturation 95% on 2 L nasal cannula. GENERAL: Alert and oriented x3. Resting comfortably in bed. Does not appear to be in any acute distress. NECK: Supple. No JVD noted. CARDIOVASCULAR: Regular rate and rhythm. LUNGS: Clear to auscultation. No wheezing. No rhonchi or crackles. ABDOMEN: Soft nontender. EXTREMITIES: Lower extremities, no edema. CARDIOVASCULAR MEDICATIONS: Metoprolol 25 mg p.o. daily, furosemide 20 mg p.o. daily, lisinopril 10 mg p.o. daily LABORATORY DATA: Sodium 141, potassium 4.3, BUN 25, creatinine 0.88, glucose 108. IMPRESSION: 1. Complete heart block, status post biventricular implantable cardioverter-defibrillator implant two days ago. 2. Acute systolic heart failure, status post implantable cardioverter-defibrillator placement. 3. Type 2 myocardial infarction. 4. Hypertension. 5. Hyperlipidemia. 6. Obesity. 7. Cough. RECOMMENDATIONS: Discontinue NELSON inhibitor given complaints of a worsening cough. Reevaluate and repeat chest x-ray today. Continue optimal medical therapy for management of the above. Maintain on telemetry at all time. If chest x-ray is negative, okay to discharge from a cardiovascular standpoint with close followup with Cardiology. We will continue to follow this patient very closely. Dictated by Raine Coyne NP MD EASTON Maria/ALLISON /[id number]
--- NOTE | 2020-05-05 15:35 | NUR ---
SPOKE WITH SISTER [phone], SHE STATES SHE DOES NOT WANT HOME HEALTH SHE STATES SHE PREFERS OUTPATIENT THERAPY, WILL FAX ORDER AND FACESHEET TO THERAPY DEPARTMENT. EDUCATED ABOUT IMM FILED IN CHART DOES NOT WANT TO APPEAL DISCHARGE AT THIS TIME.
[2020-05-05] MEDS: GUAIFENESIN 600 MG TAB PO PRN (16:24)
--- NOTE | 2020-05-05 16:30 | NUR ---
notified by safety technician that patient's HR is 128 with pacemaker firing at 128 bpm then pacemaker not firing at all and underlying heart rate is 25bpm then back to 78 bpm with normal pacing. patient's vital signs stable and does not feel anything differently. dr. lombardi notified- orders received. Dr. Henson- covering for Dr. Rayo- notified and is having [employer] come to interrogate device.
[2020-05-05] MEDS ORDERED: METOPROLOL TARTRATE INJ 1 MG/ML VIAL IV NR (17:00)
--- NOTE | 2020-05-05 18:45 | NUR ---
[employer] abrasives sales representative (Jairo) in patient's room interrogating patient's current pacemaker. Patient in stable condition at this time.
--- NOTE | 2020-05-05 19:05 | NUR ---
Patient visited in room during nursing rounds. As reported by Jairo ([employer] service liaison representative), the RV lead of the pacemaker was turned off and now the rhythm is reading "Paced". Patient alert and oriented x3. Ambulatory in room with 1 person assist and use of walker prn. Pt wearing sling on left arm and has a pressure dressing on left upper chest (s/p pacemaker placement on 05/03/20). Dressing clean, dry and intact. Call phillips within reach. Will monitor pt closely.
[2020-05-05] MEDS: SODIUM CHLORIDE 0.9% 1000ML 1,000 ML IV ONE (19:41)
[2020-05-05] MEDS: DONEPEZIL HCL 5 MG TAB PO SCH (20:50)
[2020-05-05] MEDS: ATORVASTATIN 10 MG TAB PO SCH (20:50)
--- NOTE | 2020-05-05 22:51 | Progress Note ---
DATE: 05/05/2020 CONSULTANTS: Dr. Webber with system development engineer. CHIEF COMPLAINT: Shortness of breath, cough, and chest pain. SUBJECTIVE: The patient reports her shortness of breath is improving, still with frequent cough. She reports generalized weakness and requiring more assistance than usual to go to the bathroom and with her ADLs. She denies any chest pain, hemoptysis, nausea, or vomiting. PHYSICAL EXAMINATION: VITAL SIGNS: Temperature 98.2, pulse is 76, respirations 18, blood pressure 117/68, and pulse ox is 96% on nasal cannula. GENERAL: No acute distress. HEENT: Normocephalic and atraumatic. NECK: Supple. LUNGS: Decreased breath sounds. CARDIOVASCULAR: Regular rate and rhythm. Left upper chest pacemaker with bivalve defibrillator in place. GI: Soft and nontender. NEUROLOGIC: Alert, awake, and oriented x 2 to 3, forgetful. MUSCULOSKELETAL: Moves all extremities. SKIN: Dry. LABORATORY DATA: WBC 12.38, hemoglobin 9.9, and hematocrit 31.2. Sodium 141, potassium 4.3, CO2 of 18, and creatinine 0.88. Estimated GFR is greater than 60. Hemoglobin A1c is 5.1. Coronavirus PCR is pending. Chest x-ray shows persistent faint bibasilar hazy opacities, which could be due to atelectasis, pneumonia could be considered in the appropriate clinical setting. IMPRESSION: 1. Complete heart block with symptoms, status post biventricular ICD and temporary pacemaker. Chest x-ray noted. We will continue with IV antibiotics. Cardiology and EP on the case. The pacemaker has been interrogated yesterday morning. 2. Acute kidney injury. Improved today. 3. Acute systolic congestive heart failure. Cardiology is on the case. We will continue on beta-blockers and Lasix. NELSON inhibitors were discontinued due to cough. She is on Arbs. 4. Leukocytosis. Afebrile, we will continue IV antibiotics. Improving. 5. Hypertension. Stable on beta-blockers, losartan, and Lasix. 6. High cholesterol. We will continue statin. 7. Dementia. On Donepezil. 8. Type 2 RI. Defer to Cardiology. 9. Debility. Physical Therapy has been consulted. The patient uses placement and prefers outpatient rehab. 10. Deep venous thrombosis prophylaxis. SCDs due to anemia. Hemoglobin is 9.9. PLAN: To continue current treatment, antibiotics and Physical Therapy to evaluate. Case Management has been consulted for out patient placement. Dictated by ANAHY Godinez Alexis Garcia MD MY/MODL /[id number] Pt seen and examined on 05/05/20. Agree with the findings and plan as documented by ANAHY Falk. ANISAD
[2020-05-05] MEDS: VANCOMYCIN 1GM/NS 250 ML 250 ML IV SCH (23:07)
[2020-05-06] VITALS (8 sets, daily range): BP systolic 132–144; BP diastolic 71–93
[2020-05-06] MEDS: CEFAZOLIN SOD 1 GM/NS 50ML 50 ML IV SCH ×3 (06:00→22:23)
--- NOTE | 2020-05-06 08:39 | Diagnostic Imaging Report ---
Examination: Single AP view of the chest. COMPARISON: None. INDICATION: Cough DISCUSSION: Lines/tubes: Multi lead cardiac device. Lungs: Pulmonary venous congestion. Pleura: Probable small effusions. Heart and mediastinum: Cardiomegaly. Bones and soft tissues: No acute bony abnormalities. IMPRESSION: 1. Cardiomegaly with pulmonary venous congestion. Signed by: Dr. Ziyad Foley M.D. on 05/06/2020 8:35 AM
[2020-05-06] MEDS: LOSARTAN POTASSIUM 25 MG TAB PO SCH (09:00)
[2020-05-06] MEDS: METOPROLOL SUCCINATE 25 MG TAB XL PO SCH (09:00)
[2020-05-06] MEDS: FUROSEMIDE 20 MG TAB PO SCH (09:00)
[2020-05-06] MEDS ORDERED: FUROSEMIDE 20 MG TAB PO SCH (10:30)
--- NOTE | 2020-05-06 11:34 | Progress Note ---
DATE: Cardiology Progress Note SUBJECTIVE: The patient continues to have a cough, however, slightly improved this morning. Does endorse some occasional shortness of breath. Denies any chest pain. OBJECTIVE: VITAL SIGNS: Temperature 97.7, pulse 85, respiratory rate 20, blood pressure 133/71, oxygen saturation 95% on 2 L nasal cannula. GENERAL: Alert and oriented x3, resting comfortably in bed. Does not appear to be in any acute distress. NECK: Supple. No JVD noted. CARDIOVASCULAR: Regular rate and rhythm. LUNGS: Clear to auscultation. No wheezing. No rhonchi or crackles. ABDOMEN: Soft and nontender. EXTREMITIES: Lower extremity trace edema bilaterally. CARDIOVASCULAR MEDICATIONS: Metoprolol 25 mg p.o. daily, Lasix 40 mg p.o. daily, and hydralazine 10 mg IV q.4 hours, losartan 25 mg p.o. daily. LABORATORY DATA: No new labs today. Chest x-ray from this morning with cardiomegaly with pulmonary venous congestion. IMPRESSION: 1. Complete heart block, status post biventricular implantable cardioverter-defibrillator. 2. Acute systolic heart failure. 3. Type 2 myocardial infarction. 4. Hypertension. 5. Hyperlipidemia. 6. Obesity. 7. Cough. RECOMMENDATIONS: Continue the above-listed cardiac medications. NELSON inhibitor, discontinued yesterday with slight improvement of cough noted. Lasix dose uptitrated today, given pulmonary congestion. We will continue to follow this patient. Maintain on telemetry. Dictated by Raine Coyne NP MD EASTON Maria/ALLISON /[id number]
--- NOTE | 2020-05-06 19:05 | NUR ---
Patient visited in room during nursing rounds. Patient alert and oriented x3. Ambulatory in room with 1 person assist and use of walker prn. Pt wearing sling on left arm and has a pressure dressing on left upper chest (s/p pacemaker placement on 05/03/20). Dressing clean, dry and intact. Dr. Garcia visited pt and aware of pt condition. Call phillips within reach. Will monitor pt closely.
[2020-05-06] MEDS: DONEPEZIL HCL 5 MG TAB PO SCH (20:47)
[2020-05-06] MEDS: ATORVASTATIN 10 MG TAB PO SCH (20:47)
--- NOTE | 2020-05-06 23:01 | Progress Note ---
DATE: 05/06/2020 CONSULTANTS: 1. Dr. Webber with director instrumentation. 2. Dr. Graham with EP. CHIEF COMPLAINT: Shortness of breath, cough, and chest pain. SUBJECTIVE: The patient is seen, resting in bed, shortness of breath is improving. Still with complaints of generalized weakness. Staff reported heart rate of 20s overnight and yesterday evening. The patient did not have any ICD firing or discomfort. Cardiology and EP were made aware. She denies any chest pain, nausea, vomiting, fever, or chills. PHYSICAL EXAMINATION: VITAL SIGNS: Temperature 98.9, pulse is 76, respirations 20, blood pressure 138/78, pulse ox is 96% on 2 L of oxygen. GENERAL: Fatigue. HEENT: Normocephalic and atraumatic. NECK: Supple. LUNGS: With decreased breath sounds. CARDIOVASCULAR: Regular rate and rhythm. Left chest dressing intact. GI: Soft and nontender. NEUROLOGIC: Alert, awake, and oriented x2 to 3. MUSCULOSKELETAL: Moves all extremities. No edema. SKIN: Dry. LABORATORY DATA: Chest x-ray shows cardiomegaly with pulmonary venous congestion. IMPRESSION: 1. Symptomatic complete heart block. Status post biventricular ICD placement. Chest x-ray noted with congestion. Cardiology and EP on the case. Had noticed heart rate in the 20s overnight, EP was notified and interrogated this morning, EP to evaluate later today. 2. Acute kidney injury, resolved. 3. Acute systolic congestive heart failure. Continue on beta-blockers and Lasix. Eloy inhibitor discontinued due to cough. 4. Leukocytosis. Afebrile, improved. We will continue with IV antibiotics. 5. Hypertension. We will continue on beta-nida, losartan and Lasix. 6. High cholesterol. On statin. 7. Dementia. Mild, on donepezil. 8. Type [address] We will defer to Cardiology. 9. Debility. Physical Therapy to evaluate and treat. 10. Deep vein thrombosis prophylaxis. SCDs due to anemia. PLAN: To continue current treatment, tele monitor, further recommendations per EP. The patient and family prefer outpatient rehab upon discharge. Dictated by ANAHY Godinez Alexis Garcia MD MY/MODL /[id number] The patient was seen and examined on 05/06/20. Agree with the findings and plan as documented by ANAHY Falk. UZAIR
[2020-05-06] MEDS: VANCOMYCIN 1GM/NS 250 ML 250 ML IV SCH (23:08)
[2020-05-07] VITALS (8 sets, daily range): BP systolic 119–143; BP diastolic 69–91
[2020-05-07] MEDS: GUAIFENESIN 600 MG TAB PO PRN (00:25)
[2020-05-07 05:39] LABS: BASOPHILS % 0.3 % (0.0-1.0); EOSINOPHILS # (AUTO) 0.1 (0.0-0.4); HEMATOCRIT 31.8 % (34.2-44.1); HEMOGLOBIN 10.4 g/dL (12.0-16.0); LYMPHOCYTES % 18.1 % (18.0-39.1); MEAN CORPUSCULAR HEMOGLOBIN 30.7 pg (28-32); MEAN CORPUSCULAR HGB CONC 32.7 g/dL (31-35); MEAN CORPUSCULAR VOLUME 93.8 fL (81-99); MONOCYTES # (AUTO) 0.9 (0.2-0.8); MONOCYTES % 8.3 % (4.4-11.3); NEUTROPHILS % 71.8 % (38.7-80.0); PLATELET COUNT 168 x10e3/uL (140-360); RED BLOOD COUNT 3.39 x10e6/uL (3.6-5.1); RED CELL DISTRIBUTION WIDTH 12.8 % (11.7-14.4)
[2020-05-07] MEDS ORDERED: SODIUM CHLORIDE 0.9% 250ML 250 ML ONE (05:53)
[2020-05-07] MEDS: CEFAZOLIN SOD 1 GM/NS 50ML 50 ML IV SCH ×3 (05:54→22:23)
[2020-05-07 05:56] LABS: ANION GAP 13.5 mmol/L (8-16); BLOOD UREA NITROGEN 20 mg/dL (7-26); BUN/CREATININE RATIO 25 (6-25); CALCIUM 8.4 mg/dL (8.4-10.2); CARBON DIOXIDE 19 mmol/L (22-29); CHLORIDE 110 mmol/L (98-107); CREATININE, SERUM 0.81 mg/dL (0.57-1.11); EST GLOMERULAR FILTRATION RATE > 60 ML/MIN (60-); GLUCOSE 108 mg/dL (74-118); POTASSIUM 4.5 mmol/L (3.5-5.1); SODIUM 138 mmol/L (136-145)
--- NOTE | 2020-05-07 07:59 | NUR ---
PT WASNT ABLE TO GT TO PATIENT ON THURSDAY, PENDING PHYSICAL THERAPY NOTE PRIOR TO BEING ABLE TO COMPLETE OUTPATIENT THERAPY REFERRAL.
[2020-05-07] MEDS: METOPROLOL SUCCINATE 25 MG TAB XL PO SCH (09:00)
[2020-05-07] MEDS: FUROSEMIDE INJ 10 MG/ML 4 ML VIAL IV SCH ×3 (11:00→22:23)
--- NOTE | 2020-05-07 12:18 | Progress Note ---
DATE: 05/07/2020 Cardiology Progress note SUBJECTIVE: The patient denies chest pain or shortness of breath. She continues to complain of cough. OBJECTIVE: VITAL SIGNS: Temperature 98.8 degrees, pulse 72, respiratory rate 20, blood pressure 140/86, and oxygen saturation 94% on 2 L nasal cannula. GENERAL: Awake, alert, in no acute distress. LUNGS: Clear to auscultation bilaterally. No wheezes or crackles. CARDIOVASCULAR: Normal rate. Regular rhythm. No murmur. Normal S1, S2. ABDOMEN: Soft and nontender. EXTREMITIES: No edema. NEUROLOGIC: Nonfocal exam. CARDIAC MEDICATIONS: Atorvastatin 10 mg p.o. at bedtime, losartan 25 mg p.o. daily, metoprolol succinate 25 mg p.o. daily, and Lasix 40 mg p.o. daily. LABORATORY DATA: WBC 11.08, hemoglobin 10.4, hematocrit 31.8, and platelets 168. Sodium 138, potassium 4.5, chloride 110, CO2 of 19, BUN 20, and creatinine 0.81. TELEMETRY: Telemetry was personally reviewed and interpreted, revealing ventricular paced rhythm. IMPRESSION: 1. Complete heart block, status post biventricular implantable cardioverter defibrillator. 2. Acute systolic heart failure. 3. Mild coronary artery disease. 4. Type 2 myocardial infarction secondary to acute systolic heart failure. 5. Hypertension. 6. Hyperlipidemia. 7. Obesity. 8. Cough. RECOMMENDATIONS: Continue ARB and metoprolol. Change to IV Lasix as elevated given the degree of elevation of LVEDP on cardiac catheterization. Check BNP. The patient will need to return to the lab technician this afternoon with EP for revision of her RV lead. Monitor the patient closely on telemetry. Thank you for this consult. We will continue to follow. Mariel Blanchard MD ABS/MODL /[id number]
--- NOTE | 2020-05-07 13:50 | NUR ---
Patient off the unit for procedure, Alert with no distress
[2020-05-07] MEDS ORDERED: MIDAZOLAM HCL 2 MG/2 ML VIAL ONE ×2 (13:59→14:59)
[2020-05-07] MEDS ORDERED: FENTANYL CITRATE/PF 100MCG/2 ML INJ ONE (13:59)
[2020-05-07] MEDS ORDERED: LIDOCAINE HCL 2% LOCAL 20 ML VIAL ONE ×2 (14:00→14:33)
[2020-05-07] MEDS ORDERED: BACITRACIN 50,000 UNIT VIAL ONE (14:00)
[2020-05-07] MEDS ORDERED: SODIUM CHLORIDE 0.9% 1000ML 2,000 ML ONE (14:00)
[2020-05-07] MEDS ORDERED: SODIUM CHLORIDE 0.9% 500ML 500 ML ONE (14:00)
[2020-05-07] MEDS ORDERED: VANCOMYCIN 1GM/NS 250 ML 500 ML ONE (14:10)
[2020-05-07] MEDS ORDERED: GENTAMICIN SULFATE 40 MG/ML 2 ML VIAL ONE (14:10)
[2020-05-07] MEDS ORDERED: CEFAZOLIN SOD 2 GM/D5W 50ML 50 ML IV ONE (14:13)
[2020-05-07] MEDS ORDERED: LIDOCAINE 1% W/EPINEPHRINE 20 ML VIAL ONE (14:32)
[2020-05-07] MEDS: LOSARTAN POTASSIUM 25 MG TAB PO SCH (17:36)
--- NOTE | 2020-05-07 19:00 | NUR ---
RECEIVED PATIENT IN BEDSIDE SHIFT REPORT. PATIENT RESTING IN BED AT THIS TIME. MODERATE PAIN REPORTED, WILL MEDICATE. PRESSURE DRESSING TO L CHEST C/D/I. DRESSING TO R NECK C/D/I. DRESSING TO R GROIN C/D/I. L ARM IN SLING. PATIENT VERBALIZED UNDERSTANDING OF POST-PACEMAKER PLACEMENT PRECAUTIONS. NO S&S OF DISTRESS NOTED. BED LOCKED IN LOWEST POSITION, SIDE RAILS UPX2, CALL LIGHT IN REACH.
[2020-05-07] MEDS: ATORVASTATIN 10 MG TAB PO SCH (20:42)
[2020-05-07] MEDS: DONEPEZIL HCL 5 MG TAB PO SCH (20:42)
--- NOTE | 2020-05-07 22:56 | Progress Note ---
DATE: 05/07/2020 SUBJECTIVE: Her cough is about the same. OBJECTIVE: VITAL SIGNS: Temperature 97.8, pulse 80, respiratory rate 18, blood pressure 119/69. GENERAL: In no acute distress. SKIN: No rash. LUNGS: Clear anteriorly. HEART: Regular rate and rhythm. Normal S1, S2. GI: Abdomen soft, nondistended. NEUROLOGIC: Alert and oriented x3. PSYCHIATRIC: No depression. LABORATORY DATA: Laboratory moser, white count 11, hemoglobin 10, platelet count 168. BUN 20 and creatinine 0.8. ASSESSMENT AND PLAN: 1. Complete heart block, status post pacemaker/AICD. The patient was taken back to the calibration laboratory technician for lead adjustment. We will continue telemetry. We will continue IV vancomycin and Ancef per Cardiology. 2. Acute systolic congestive heart failure. Her Lasix has been changed to IV. We will reassess in the morning. We will also continue her Toprol-XL and losartan. 3. Type 2 myocardial infarction. We will continue medical management per Cardiology. 4. Mild acute kidney injury, resolved. 5. Gastrointestinal and deep vein thrombosis prophylaxis. No chemical DVT prophylaxis due to recent procedure. 6. Disposition. The patient and family refuse placement. We will work on outpatient PT per their preference. MD KALYANI Alvarado/ALLISON /[id number]
--- NOTE | 2020-05-07 23:15 | Diagnostic Imaging Report ---
Examination: Single AP view of the chest. COMPARISON: Portable chest 05/06/2020 INDICATION: Symptomatic bradycardia IMPRESSION: 1. Lines and Tubes: Stable left upper chest multilead cardiac device. 2. Lungs are slightly hypoinflated. No consolidation or effusion. Bilateral perihilar interstitial opacities consistent with interstitial pulmonary edema. 3. Stable enlargement of the cardiac silhouette. Central pulmonary venous congestion. 4. No acute bony abnormalities. Signed by: Dr. Jerzy Salazar M.D. on 05/07/2020 11:12 PM
[2020-05-08] VITALS (8 sets, daily range): BP systolic 123–139; BP diastolic 69–86
[2020-05-08] MEDS: VANCOMYCIN 1GM/NS 250 ML 250 ML IV SCH (00:15)
--- NOTE | 2020-05-08 01:00 | NUR ---
R FA IV NOTED TO BE LEAKING. REMOVED AT THIS TIME. CATHETER TIP INTACT. PRESSURE DRESSING APPLIED.
--- NOTE | 2020-05-08 04:37 | Operative Report ---
DATE OF PROCEDURE: 05/07/2020 SURGEON: Doron Maguire MD PREPROCEDURE DIAGNOSES: 1. Right ventricular lead loss of capture. 2. Recent biventricular device in place. 3. Complete heart block, pacemaker dependent. POSTPROCEDURE DIAGNOSES: 1. Right ventricular lead loss of capture. 2. Recent biventricular device in place. 3. Complete heart block, pacemaker dependent. ATTENDING PHYSICIAN: Doron Maguire MD The patient had episodes of increased right ventricular lead threshold and has been pacing from the left ventricular lead. Since she is pacemaker dependent after discussing the options, we decided she proceed with right ventricular lead revision. PROCEDURES PERFORMED: 1. Right ventricular lead revision. 2. Moderate sedation. COMPLICATIONS: None. ESTIMATED BLOOD LOSS: 10 mL. DESCRIPTION OF PROCEDURE: After informed consent was obtained, the patient was brought to the electrophysiology laboratory in a fasting, nonsedated state. Area over her chest was prepped and draped in the usual sterile fashion. Moderate sedation and prophylactic antibiotics were given. 1% lidocaine was used as local anesthetic and a 3 cm skin incision was made in the left subclavicular area over the previous device. Electrocautery in blunt dissection was used to bridge the previous device, this device was freed out of the pocket. The right ventricular lead was disconnected and stylet was advanced. The screw was retracted and the lead was repositioned at the RV apex and a little bit more septal location and the screw was deployed, the sensing was about 5-6 with good current of injury. The patient's threshold was 0.9 at 0.4, impedance 800 and then the lead was connected to the device. The lead was secured to fascia using Ethibond. Pocket was irrigated with antibiotic solution using the pulse process safety engineering technologist. Hemostasis was meticulous. We used vancomycin powder in the pocket, also antibiotic envelope. Incision was closed using absorbable sutures and Dermabond. The patient tolerated procedure well. Procedure was incomplete. SUMMARY OF HARDWARE IMPLANTED: The patient had recently implanted [employer] biventricular cardiac defibrillator. We performed revision of the same biventricular lead, no new hardware was implanted on this opportunity of the procedure. IMPRESSION: 1. Successful right ventricular lead revision. 2. Normal functioning biventricular defibrillator. PLAN: 1. Routine postop monitoring on telemetry bed. 2. Chest x-ray. 3. Follow up in two weeks. MD YUKI Desai/ALLISON /[id number]
[2020-05-08 04:48] LABS: BASOPHILS # (AUTO) 0.1 (0.0-0.1); BASOPHILS % 0.5 % (0.0-1.0); EOSINOPHILS # (AUTO) 0.1 (0.0-0.4); EOSINOPHILS % 0.7 % (0.0-6.0); HEMATOCRIT 32.4 % (34.2-44.1); HEMOGLOBIN 10.3 g/dL (12.0-16.0); LYMPHOCYTES # (AUTO) 1.5 (1.0-3.2); LYMPHOCYTES % 16.7 % (18.0-39.1); MEAN CORPUSCULAR HEMOGLOBIN 29.9 pg (28-32); MEAN CORPUSCULAR HGB CONC 31.8 g/dL (31-35); MEAN CORPUSCULAR VOLUME 94.2 fL (81-99); MONOCYTES # (AUTO) 0.7 (0.2-0.8); MONOCYTES % 8.1 % (4.4-11.3); NEUTROPHILS # (AUTO) 6.7 (2.1-6.9); NEUTROPHILS % 73.6 % (38.7-80.0); PLATELET COUNT 96 x10e3/uL (140-360); RED BLOOD COUNT 3.44 x10e6/uL (3.6-5.1); RED CELL DISTRIBUTION WIDTH 12.9 % (11.7-14.4)
[2020-05-08 05:12] LABS: ANION GAP 14.3 mmol/L (8-16); BLOOD UREA NITROGEN 18 mg/dL (7-26); BUN/CREATININE RATIO 21 (6-25); CALCIUM 8.4 mg/dL (8.4-10.2); CARBON DIOXIDE 20 mmol/L (22-29); CHLORIDE 109 mmol/L (98-107); CREATININE, SERUM 0.84 mg/dL (0.57-1.11); EST GLOMERULAR FILTRATION RATE > 60 ML/MIN (60-); GLUCOSE 95 mg/dL (74-118); MAGNESIUM 2.1 MG/DL (1.3-2.1); POTASSIUM 4.3 mmol/L (3.5-5.1); SODIUM 139 mmol/L (136-145)
[2020-05-08] MEDS: CEFAZOLIN SOD 1 GM/NS 50ML 50 ML IV SCH ×3 (06:20→21:48)
[2020-05-08] MEDS: LOSARTAN POTASSIUM 25 MG TAB PO SCH (08:48)
[2020-05-08] MEDS: FUROSEMIDE INJ 10 MG/ML 4 ML VIAL IV SCH ×3 (08:48→21:20)
[2020-05-08] MEDS: METOPROLOL SUCCINATE 25 MG TAB XL PO SCH (08:48)
--- NOTE | 2020-05-08 18:24 | NUR ---
Nutrition Screen Note RD Recommendation for Physician: - Continue current diet Plan of Care: RD following, monitoring for tolerance and adequacy Nutrition reason for involvement: Early LOS Primary Diagnose(s): symptomatic bradycardia PMH: HTN, high cholesterol, CHF, dementia, cholecystectomy Ht: 67 in Wt: 250 lb BMI: 39.15 kg/m2 IBW: [address] Assessment: 05/08: 80 YOF admitted for symptomatic bradycardia requiring AICD placement. Pt evaluated today for LOS. Pt with no reported wt loss or poor intake on admit. Pt eating 50-75% of meals recently. No GI distress. Chart reviewed. Labs and meds reviewed. Will continue to monitor. Current Diet: Cardiac Malnutrition Evaluation (05/08/20) The patient does not meet criteria for a specified degree of malnutrition at this time. Will re-evaluate at follow-up as appropriate. Diet Education Needs Assessment: Diet education indicated, unable to provide education at this time- RD remote status Diet tolerance: tolerating po Nutrition Care Level: low Signed: Vicky Haji RD, LD, [facility]
--- NOTE | 2020-05-08 19:00 | NUR ---
RECEIVED PATIENT IN BEDSIDE SHIFT REPORT. PATIENT RESTING IN BED AT THIS TIME. NO PAIN REPORTED. NO S&S OF DISTRESS NOTED. L ARM IN SLING. ALL DRESSINGS C/D/I. BED LOCKED IN LOWEST POSITION, SIDE RAILS UPX2, CALL LIGHT IN REACH.
--- NOTE | 2020-05-08 19:01 | Progress Note ---
DATE: 05/08/2020 Cardiology Progress Note SUBJECTIVE: The patient reports discomfort at her ICD site. She continues to report shortness of breath and cough. OBJECTIVE: VITAL SIGNS: Temperature 97.6 degrees, pulse 69, respiratory rate 16, blood pressure 128/80, and oxygen saturation 98% on 2 L nasal cannula. GENERAL: Awake, alert, in no acute distress. LUNGS: Clear to auscultation bilaterally. No wheeze or crackles. CARDIOVASCULAR: Normal rate. Regular rhythm. No murmur. Normal S1 and S2. ABDOMEN: Soft and nontender. EXTREMITIES: No edema. Pressure dressing present on left chest. CARDIAC MEDICATIONS: Lasix 40 mg IV t.i.d., losartan 25 mg p.o. daily, metoprolol succinate 25 mg p.o. daily, and atorvastatin 10 mg p.o. at bedtime. LABORATORY DATA: WBC 9.12, hemoglobin 10.3, hematocrit 32.4, and platelets 96. Sodium 139, potassium 4.3, chloride 109, CO2 20, BUN 18, and creatinine 0.84. Telemetry was personally reviewed and interpreted, revealing atrial sensed ventricular paced rhythm. IMPRESSION: 1. Complete heart block, status post BiV ICD. 2. Acute systolic heart failure. 3. Mild coronary artery disease. 4. Type 2 myocardial infarction secondary to acute systolic heart failure. 5. Hypertension. 6. Hyperlipidemia. 7. Obesity. 8. Cough. RECOMMENDATIONS: Continue losartan and metoprolol. Continue IV Lasix given significant elevation of LVEDP on cardiac catheterization. BP remains elevated. Monitor the patient closely on telemetry. Continue vancomycin and discontinue Ancef. She will need minocycline 100 mg p.o. b.i.d. for 10 days on discharge. Thank you for this consult. We will continue to follow. Mariel Blanchard MD ABS/MODL /[id number]
[2020-05-08] MEDS: DONEPEZIL HCL 5 MG TAB PO SCH (21:20)
[2020-05-08] MEDS: ATORVASTATIN 10 MG TAB PO SCH (21:20)
--- NOTE | 2020-05-08 23:30 | NUR ---
L AC 20G IV NOTED TO BE KINKED, CAN FLUSH, BUT IV FLUIDS WILL NOT RUN. REMOVED IV AT THIS TIME. CATHETER TIP INTACT, PRESSURE DRESSING APPLIED.
[2020-05-09] VITALS (9 sets, daily range): BP systolic 122–147; BP diastolic 71–92
[2020-05-09] MEDS: VANCOMYCIN 1GM/NS 250 ML 250 ML IV SCH (01:00)
--- NOTE | 2020-05-09 01:32 | Progress Note ---
DATE: 05/08/2020 SUBJECTIVE: Her cough is better. OBJECTIVE: VITAL SIGNS: Temperature 97.7, pulse 70, respiratory rate 18, blood pressure 139/77. GENERAL: No acute distress. SKIN: No rash. LUNGS: Decreased at the bases. HEART: Regular rate and rhythm. Normal S1, S2. GI: Abdomen is soft, nondistended. NEUROLOGIC: Alert and oriented x3. PSYCHIATRIC: No hallucination. LABORATORY DATA: White count 9, hemoglobin 10, platelet count 96. Creatinine 0.8. ASSESSMENT AND PLAN: 1. Complete heart block, status post pacemaker/AICD. Subsequently, the patient was taken back to the labor arbitrator hearing office for right ventricular lead revision. 2. Acute systolic congestive heart failure. We will continue IV Lasix per Cardiology. We will also continue her Toprol-XL and losartan. 3. Type 2 myocardial infarction. We will continue medical management per Cardiology. 4. Mild thrombocytopenia. We will monitor. The patient does not appear to be on any anticoagulation. 5. Gastrointestinal and deep vein thrombosis prophylaxis. No chemical DVT prophylaxis due to thrombocytopenia. 6. Disposition. We will arrange outpatient physical therapy per the patient and family's preference. Yiching MD KALYANI Ariza/ALLISON /[id number]
[2020-05-09 05:19] LABS: BASOPHILS % 0.3 % (0.0-1.0); EOSINOPHILS # (AUTO) 0.1 (0.0-0.4); EOSINOPHILS % 0.8 % (0.0-6.0); HEMATOCRIT 31.5 % (34.2-44.1); HEMOGLOBIN 10.3 g/dL (12.0-16.0); LYMPHOCYTES # (AUTO) 1.8 (1.0-3.2); LYMPHOCYTES % 15.3 % (18.0-39.1); MEAN CORPUSCULAR HEMOGLOBIN 29.6 pg (28-32); MEAN CORPUSCULAR HGB CONC 32.7 g/dL (31-35); MONOCYTES # (AUTO) 1.1 (0.2-0.8); NEUTROPHILS # (AUTO) 8.6 (2.1-6.9); NEUTROPHILS % 74.1 % (38.7-80.0); PLATELET COUNT 190 x10e3/uL (140-360); RED BLOOD COUNT 3.48 x10e6/uL (3.6-5.1); RED CELL DISTRIBUTION WIDTH 12.9 % (11.7-14.4)
[2020-05-09 05:42] LABS: ANION GAP 11.6 mmol/L (8-16); BLOOD UREA NITROGEN 17 mg/dL (7-26); BUN/CREATININE RATIO 20 (6-25); CALCIUM 8.4 mg/dL (8.4-10.2); CARBON DIOXIDE 26 mmol/L (22-29); CHLORIDE 104 mmol/L (98-107); CREATININE, SERUM 0.87 mg/dL (0.57-1.11); EST GLOMERULAR FILTRATION RATE > 60 ML/MIN (60-); GLUCOSE 100 mg/dL (74-118); MAGNESIUM 1.9 MG/DL (1.3-2.1); POTASSIUM 3.6 mmol/L (3.5-5.1); SODIUM 138 mmol/L (136-145)
[2020-05-09 05:46] LABS: MEAN CORPUSCULAR VOLUME 90.5 fL (81-99)
--- NOTE | 2020-05-09 07:05 | NUR ---
RCD PT AT BED PT IS ALERT AND ORIENTED PT RESTING ON BED IV PATENT BY SALINE FLUSH BED LOW AND LOCKED CALL LIGHT IN REACH
[2020-05-09] MEDS: METOPROLOL SUCCINATE 25 MG TAB XL PO SCH (09:00)
[2020-05-09] MEDS: LOSARTAN POTASSIUM 25 MG TAB PO SCH (09:00)
[2020-05-09] MEDS: FUROSEMIDE INJ 10 MG/ML 4 ML VIAL IV SCH ×3 (09:00→21:52)
--- NOTE | 2020-05-09 09:11 | Diagnostic Imaging Report ---
EXAMINATION: CHEST SINGLE (PORTABLE) INDICATION: CHF COMPARISON: Chest radiograph 05/07/2020 FINDINGS: LINES/TUBES:Left chest AICD. EKG leads overlie the chest. LUNGS:The lungs are moderately inflated. Central pulmonary vascular congestion. No focal consolidation or rj pulmonary edema. PLEURA:No pleural effusion or pneumothorax. MEDIASTINUM:Cardiomediastinal silhouette is stably enlarged. BONES/SOFT TISSUES:No acute osseous injury. ABDOMEN:No free air under the diaphragm. IMPRESSION: Cardiomegaly and central pulmonary vascular congestion. No focal consolidation or rj pulmonary edema. Signed by: Mich Ortega MD on 05/09/2020 9:08 AM
--- NOTE | 2020-05-09 12:10 | NUR ---
ORDERS TO ARRANGE OP P.T. PER PT'S SISTER'S REQUEST CHOICE LETTER SIGNED FOR [facility] COPY OF CHOICE LETTER TO PT IMM EXPLAINED TO PT, SIGNED BY PT AND PLACED IN CHART COPY OF IMM TO PT IN CARE TRANSITIONS FOLDER SPOKE WITH ELLIE AT [facility] WHO CONFIRMED THEY ARE IN NETWORK WITH [facility] FAXED CLINICALS TO [facility] AT [phone] ELLIE WILL BE REACHING OUT TO SISTER HARIS HOSTON [phone] TO SCHEDULE APPT. DISCUSSED ABOVE INFORMATION WITH SISTER HARIS OVER PHONE IN PT'S ROOM SHE ASKS THAT NURSE CALL HER WITH DC CARE PLAN IF PT DISCHARGED PT HAS MILD DEMENTIA
--- NOTE | 2020-05-09 15:04 | Progress Note ---
DATE: 05/09/2020 Cardiology Progress note SUBJECTIVE: The patient reports she does not feel well today, but was unable to provide further details. She notes she was dizzy when she was walking earlier today. Denies any chest pain or shortness of breath. OBJECTIVE: VITAL SIGNS: Temperature 97.7 degrees, pulse 67, respiratory rate 17, blood pressure 130/81, and oxygen saturation 99% on 2 L nasal cannula. GENERAL: Obese woman, in no acute distress. Awake and alert. LUNGS: Clear to auscultation bilaterally. No wheezes or crackles. CARDIOVASCULAR: Normal rate. Regular rhythm. No murmur. Normal S1, S2. ABDOMEN: Soft, nontender. EXTREMITIES: No edema. CARDIAC MEDICATIONS: Lasix 40 mg IV t.i.d., losartan 25 mg p.o. daily, metoprolol succinate 25 mg p.o. daily, and atorvastatin 10 mg p.o. at bedtime. LABORATORY DATA: WBC 11.64, hemoglobin 10.3, hematocrit 31.5, and platelets 190. Sodium 138, potassium 3.6, chloride 104, CO2 of 26, BUN 17, and creatinine 0.87. BNP 1018. TELEMETRY: Telemetry was personally reviewed and revealed atrial sensed ventricular paced rhythm. IMPRESSION: 1. Complete heart block status post biventricular implantable cardioverter defibrillator. 2. Acute systolic heart failure. 3. Mild coronary artery disease. 4. Type 2 myocardial infarction secondary to acute systolic heart failure. 5. Hypertension. 6. Hyperlipidemia. 7. Obesity. 8. Cough. RECOMMENDATION: Continue losartan and metoprolol. Continue IV Lasix given significant elevation of LVEDP on cardiac catheterization. Blood pressure is better. Monitor the patient closely on telemetry. Home O2 evaluation as the patient will need to be weaned off oxygen prior to discharge. Continue vancomycin. She will need to be discharged on minocycline 100 mg p.o. b.i.d. for 10 days. Thank you for this consult. We will continue to follow. Mariel Blanchard MD ABS/MODL /[id number]
[2020-05-09] MEDS: LORATADINE 10 MG TAB PO SCH (17:00)
--- NOTE | 2020-05-09 18:43 | NUR ---
PT RESTING ON BED BED SIDE REPORT GIVEN TO ONCOMING NURSE
--- NOTE | 2020-05-09 19:25 | NUR ---
BEDSIDE SHIFT REPORT RECEVED FROM DAY RN. PT IS ALERT AND ORIENTED X2. SLING ON LEFT ARM. PACEMAKER. O2 AT 2 L PER N/C. TELE ON. RT CHEST IV 20G SL. INTERMITENT COUGH. PT DENIES PAIN. UP WITH ASSISTANCE TO BEDSIDE COMMODE. EDEMA BILAERAL LOWER EXTREMITIES NOTED. CALL LIGHT WITHIN REACH. BED LOCKED AND IN LOW POSITION.
[2020-05-09] MEDS: ATORVASTATIN 10 MG TAB PO SCH (21:49)
[2020-05-09] MEDS: DONEPEZIL HCL 5 MG TAB PO SCH (21:49)
[2020-05-10] MEDS: VANCOMYCIN 1GM/NS 250 ML 250 ML IV SCH (00:28)
--- NOTE | 2020-05-10 00:52 | Progress Note ---
DATE: 05/09/2020 SUBJECTIVE: The patient feels that she has sinus headache. She is still diuresing. OBJECTIVE: VITAL SIGNS: Temperature 98.6, pulse 73, respiratory rate 18, blood pressure 144/90. GENERAL: No acute distress. SKIN: No rash. LUNGS: Decreased. HEART: Regular rate and rhythm. Normal S1 and S2. GI: Abdomen is soft, nondistended. NEUROLOGIC: Alert and oriented x3. PSYCHIATRIC: No hallucinations. LABORATORY DATA: White count 11.6, hemoglobin 10.3, platelet count 190. Creatinine is 0.87. Beta natriuretic peptide is 1018. Her COVID test is negative. Chest x-ray still shows pulmonary congestion. ASSESSMENT AND PLAN: 1. Complete heart block, status post pacemaker/automated implantable cardioverter-defibrillator, subsequently requiring right ventricular lead revision. We will continue IV vancomycin per Cardiology and will need to go home on minocycline. 2. Acute systolic congestive heart failure. We will continue IV Lasix per Cardiology and monitor creatinine. We will also continue her Toprol-XL and losartan. 3. Type 2 myocardial infarction. Continue medical management per Cardiology. 4. Gastrointestinal and deep vein thrombosis prophylaxis. We will start Lovenox since her thrombocytopenia could be a lab error. 5. Hopefully, she can go home tomorrow with outpatient physical therapy. MD KALYANI Alvarado/ALLISON /[id number]
[2020-05-10 04:00] VITALS: BP 142/78
--- NOTE | 2020-05-10 07:10 | NUR ---
RCD PT AT BED PT IS ALERT AND ORIENTED PT RESTING ON BED IV PATENT BY SALINE FLUSH BED LOW AND LOCKED CALL LIGHT IN REACH
[2020-05-10 08:19] VITALS: BP 133/77
[2020-05-10 08:39] VITALS: BP 133/77
[2020-05-10] MEDS: FUROSEMIDE INJ 10 MG/ML 4 ML VIAL IV SCH ×3 (08:45→16:39)
[2020-05-10] MEDS: LORATADINE 10 MG TAB PO SCH (08:45)
[2020-05-10] MEDS: METOPROLOL SUCCINATE 25 MG TAB XL PO SCH (08:46)
[2020-05-10] MEDS: LOSARTAN POTASSIUM 25 MG TAB PO SCH (08:46)
--- NOTE | 2020-05-10 09:42 | NUR ---
PER NURSE BEBETO PT IS SAT AT 96% ROOM AIR WITH NO EXERTION PER RESPIRATORY, NO EXERTION COMPLETED, NURSE STATES DOES NOT QUALIFY, UNABLE TO COMPLETE O2 ORDER FOR HOME AT THIS TIME.
[2020-05-10 10:31] LABS: ANION GAP 13.4 mmol/L (8-16); CALCIUM 8.9 mg/dL (8.4-10.2); CREATININE, SERUM 0.94 mg/dL (0.57-1.11); POTASSIUM 3.4 mmol/L (3.5-5.1)
[2020-05-10] MEDS ORDERED: POTASSIUM CHLORIDE 20 MEQ TAB CR PO SCH (12:00)
[2020-05-10 12:03] VITALS: BP 125/84
--- NOTE | 2020-05-10 13:19 | Diagnostic Imaging Report ---
EXAM: CHEST SINGLE (PORTABLE) DATE: 05/10/2020 12:50 PM INDICATION: CHF COMPARISON: 05/09/2020 FINDINGS: Left-sided AICD identified in stable position. The trachea is midline. Again identified is mild prominence of the central pulmonary vasculature, unchanged from the prior examination. There is no evidence for focal consolidation, pneumothorax, or significant pleural effusion. The cardiac silhouette remains enlarged. No acute osseous abnormality is identified. IMPRESSION: No significant interval change from 05/09/2020. Signed by: Dr. Michael Beebe MD on 05/10/2020 1:16 PM
--- NOTE | 2020-05-10 14:00 | Progress Note ---
DATE: 05/10/2020 Cardiology Progress Note SUBJECTIVE: The patient denies chest pain or shortness of breath. OBJECTIVE: VITAL SIGNS: Temperature is 97.2 degrees, pulse 82, respiratory rate 18, blood pressure 135/84, and oxygen saturation 97% on room air. GENERAL: Awake, alert, in no acute distress. LUNGS: Clear to auscultation bilaterally. No wheezes or crackles. CARDIOVASCULAR: Normal rate. Regular rhythm. No murmur. Normal S1, S2. ABDOMEN: Soft, nontender. EXTREMITIES: No edema. CARDIAC MEDICATIONS: Losartan 25 mg p.o. daily, metoprolol succinate 25 mg p.o. daily, furosemide 40 mg IV t.i.d., and atorvastatin 10 mg p.o. at bedtime. LABORATORY DATA: Sodium 137, potassium 3.4, chloride 101, CO2 of 26, BUN 18, and creatinine 0.94. TELEMETRY: Telemetry was personally reviewed and interpreted revealing A-sensed V-paced rhythm. IMPRESSION: 1. Complete heart block, status post biventricular implantable cardioverter defibrillator. 2. Acute systolic heart failure. 3. Mild coronary artery disease. 4. Type 2 myocardial infarction secondary to acute systolic heart failure. 5. Hypertension. 6. Hyperlipidemia. 7. Obesity. 8. Cough. RECOMMENDATIONS: Continue losartan and metoprolol. Continue IV Lasix given significant elevation of LVEDP on cardiac catheterization. The patient's blood pressure is for the most part acceptable. Monitor the patient closely on telemetry. Continue vancomycin. She will need to be discharged on minocycline 100 mg p.o. b.i.d. for 10 days. Thank you for this consult. We will continue to follow. Mariel Blanchard MD ABS/MODL /[id number]
[2020-05-10] MEDS: ENOXAPARIN SOD INJ 40 MG/0.4 ML SYR SC SCH ×2 (16:25→16:39)
[2020-05-10] MEDS ORDERED: FUROSEMIDE40 MG PO (16:40)
[2020-05-10] MEDS ORDERED: MINOCYCLINE HCL50 MG PO (16:41)
[2020-05-10] MEDS ORDERED: METOPROLOL SUCC25 MG PO (16:44)
--- NOTE | 2020-05-10 16:50 | NUR ---
PRODUCT DIRECTOR SAID AC TO HER SISTER PT HAVE LITTLE DEMENTIA SO WHILE DISCHARGE WE NEED TO CALL THE DISCHARGE PLAN TO HER SISTER SO I TRIED TO TALK HER SISTER HARIS REGARDING DISCHARGE PLAN ( [phone] ) SHE SAID I AM IN FRONT OF THE HOSPITAL ,SO I WENT WITH PATIENT TO EXPLAIN ,SHE MAD TO US SECURITY WAS THERE ,THEN SHE SAID SHE WILL TALK MS WINN ON TOMORROW , SHE OPEN THE BAGS AND CHECKED EVERY THING PT WAS IN HOSPITAL GOWN ,SHE DONT HAVE HER OWN DRESS WE CHECKED AND ASKED THE PATIENT SHE SAID NO DRESSES WITH HER ,FINALLY DISCUSSED DISCHARGE PLAN AND PATIENT WENT HOME IN SAFE CONDITION ,WE DISCUSSED EVERYTHING WITH PRODUCTION RECORDER
--- NOTE | 2020-05-10 17:05 | NUR ---
patient went home in safe condition with her sister
--- NOTE | 2020-05-11 00:52 | Discharge Summary ---
PRIMARY CARE DOCTOR: Dr. Marleen Trimble. FINAL DIAGNOSES: 1. Complete heart block, status post pacemaker/automated implantable cardioverter-defibrillator. 2. Acute systolic congestive heart failure, status post intravenous diuresis. 3. Type 2 myocardial infarction. Medical management per Cardiology. CONSULTANTS: 1. Doron Maguire MD, EP Cardiology. 2. Mariel Blanchard MD, Cardiology. PROCEDURES/STUDIES PERFORMED: AICD placement. HISTORY: Per [facility] HOSPITAL COURSE: The patient was admitted with complete heart block. Initially, a temporary pacemaker was placed by Dr. Webber. IV vancomycin and Ancef were started. Subsequently, permanent pacemaker/AICD was placed by Dr. Rayo. On her monitoring, there were some capturing issue, therefore she did require right ventricular lead revision. The patient will go home on minocycline and follow up with Cardiology. As far as her acute systolic CHF, the patient was diuresed with IV Lasix and will be going home on p.o. Lasix 40 mg twice a day per Cardiology. The patient will also continue on Toprol-XL and losartan. The patient received Lovenox for DVT prophylaxis. The patient was seen and examined today. It took 32 minutes total to discharge this patient. She will follow up with her primary care doctor in one week. MD KALYANI Alvarado/ALLISON /[id number] cc: [facility]
== END 2020-05-10 17:05 | disposition home health service (06) | DRG 224 ==
LOC: ER 05-03 00:10 → UNDOADMIN 05-03 03:06 → ERHOLD 05-03 03:06 → CATH LAB 05-03 05:39 → OBSVTOIN 05-03 18:06 → MED/SURG 05-03 18:06
PROVIDERS: ADMIT Internal Medicine; ATTEND Internal Medicine
PROC: 5A1223Z Performance of Cardiac Pacing, Continuous (ICD-10-PCS; principal; 2020-05-03)
PROC: 0JH609Z Insertion of Cardiac Resynchronization Defibrillator Pulse Generator into Chest Subcutaneous Tissue and Fascia, Open Approach (ICD-10-PCS; 2020-05-03)
PROC: B2111ZZ Fluoroscopy of Multiple Coronary Arteries using Low Osmolar Contrast (ICD-10-PCS; 2020-05-03)
PROC: 4A023N7 Measurement of Cardiac Sampling and Pressure, Left Heart, Percutaneous Approach (ICD-10-PCS; 2020-05-03)
PROC: 02HK3KZ Insertion of Defibrillator Lead into Right Ventricle, Percutaneous Approach (ICD-10-PCS; 2020-05-03)
PROC: 02H63KZ Insertion of Defibrillator Lead into Right Atrium, Percutaneous Approach (ICD-10-PCS; 2020-05-03)
PROC: 02PA3MZ Removal of Cardiac Lead from Heart, Percutaneous Approach (ICD-10-PCS; 2020-05-03)
PROC: 3E0132A Introduction of Anti-Infective Envelope into Subcutaneous Tissue, Percutaneous Approach (ICD-10-PCS; 2020-05-03)
PROC: 02WA0MZ Revision of Cardiac Lead in Heart, Open Approach (ICD-10-PCS; 2020-05-07)
DX: I44.2 Atrioventricular block, complete (principal); I50.21 Acute systolic (congestive) heart failure; I21.A1 Myocardial infarction type 2; N17.9 Acute kidney failure, unspecified; I11.0 Hypertensive heart disease with heart failure; E78.5 Hyperlipidemia, unspecified; F03.90 Unspecified dementia, unspecified severity, without behavioral disturbance, psychotic disturbance, mood disturbance, and anxiety; Z88.2 Allergy status to sulfonamides; Z91.041 Radiographic dye allergy status; Z90.49 Acquired absence of other specified parts of digestive tract; Z82.49 Family history of ischemic heart disease and other diseases of the circulatory system; E66.9 Obesity, unspecified; R05 Cough; R53.81 Other malaise; D69.6 Thrombocytopenia, unspecified; I25.10 Atherosclerotic heart disease of native coronary artery without angina pectoris; Z11.59 Encounter for screening for other viral diseases; Z68.39 Body mass index [BMI] 39.0-39.9, adult
CPT/HCPCS: 33210; 33215; 33225; 33249; 36415; 71045; 80048; 80053; 80061; 80202; 82550; 82553; 83036; 83735; 83880; 84484; 85025; 85610; 85730; 93005; 93306; 93454; 94640; 97139; 99152; 99153; 99284; C1760; C1763; C1769; C1777; C1882; C1887; C1898; C1900; J0461; J0690; J1200; J1580; J1644; J1650; J1940; J2001; J2250; J2270; J2405; J2930; J3010; J3370; J7030; J7040; J7050; Q9967; U0002